=== PATIENT | male | born 1930 | race Caucasian/White ===

== ENCOUNTER 2019-08-11 03:37 | Emergency (ER) | payer MEDICARE, OTHER ==
--- NOTE | 2019-08-11 04:27 | ERPHSYRPT ---
- History of Present Illness Time Seen by Provider: 08/11/19 04:12 Source: patient, family Exam Limitations: clinical condition, physical impairment, other (patient has dementia and diminished hearing, seems to have significant hearing impairment as well) Patient Subjective Stated Complaint: pt states he was short of breath since he woke up about 2 am. 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 pt blood pressure. 180/84, no fever, sats ar 95% room air, 98% on 2l O2. Physician History: 88-year-old male coming in for weakness and shortness of breath, history extremely limited secondary to difficulty hearing or in dementia both any and hearing impairment anyway who offers very little additional assistance. Patient states he has been significantly short of breath for unknown length of time seems to be longer than one week.. seems to agree with this. Patient denies chest pain. Denies nausea vomiting or diarrhea. When asked about PND orthopnea or exertional shortness of breath the patient states he does not know, the does not answer if she has noticed these details of either or whether he appears more edematous than usual. Dairy limited available history. According to the medication list he has been taking a water pill twice daily when asked if he has been taking his medications he states he does not know and she eventually knocked her head yes. No additional history of be obtained PMH: Assuming from his medication list he has dementia and likely congestive heart failure Social: These two live alone, together Timing/Duration: other (unknown) Modifying Factors: Improves With: other (unknown) Allergies/Adverse Reactions: No Known Drug Allergies Allergy (Verified 08/11/19 03:59) Home Medications: Aspirin EC 81 mg [Ecotrin 81 mg] 81 mg PO DAILY 08/11/19 [History] Finasteride 5 mg PO DAILY 08/11/19 [History] Furosemide 40 mg PO BID 08/11/19 [History] Memantine HCl 5 mg [Namenda 5 MG] 5 mg PO DAILY 08/11/19 [History] Potassium Chloride [Klor-Con 8] 8 mg PO DAILY 08/11/19 [History] Tamsulosin HCl 0.4 mg PO HS 08/11/19 [History] Hx Tetanus, Diphtheria Vaccination/Date Given: No Hx Influenza Vaccination/Date Given: No Hx Pneumococcal Vaccination/Date Given: No - Review of Systems Constitutional: No Fever Eyes: No Vision Changes Ears, Nose, & Throat: No Nose Congestion, No Nose Discharge Respiratory: Other (shortness of breath), No Cough Cardiac: Edema (unknown if changed from baseline), No Chest Pain Abdominal/Gastrointestinal: No Abdominal Pain, No Vomiting, No Diarrhea Genitourinary Symptoms: No No Symptoms Musculoskeletal: Other (patient unable to answer) Skin: Other (patient unsure if his legs are more red than usual) Neurological: No Headache Psychological: Other (patient did spontaneously state "I don't drink alcohol") , No Alcohol Abuse Endocrine: Other (patient unable to advised) Hematologic/Lymphatic: No Blood Clots Immunological/Allergic: No No Symptoms All Other Systems: Unable due to dementia - Past Medical History Pertinent Past Medical History: Yes Neurological History: Alzheimer's Disease Cardiac History: Congestive Heart Failure Male Reproductive Disorders: Prostate Problems Other Medical History: 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 - Social History Smoking Status: Never smoker Exposure to second hand smoke: No Drug Use: none Patient Lives Alone: No - Nursing Vital Signs Nursing Vital Signs: Initial Vital Signs Temperature 97.4 F 08/11/19 03:46 Pulse Rate 96 H 08/11/19 03:46 Respiratory Rate 20 08/11/19 03:46 O2 Sat by Pulse Oximetry 96 08/11/19 03:46 Pain Scale Pain Intensity 0 - Physical Exam General Appearance: no apparent distress, alert Eye Exam: PERRL/EOMI, eyes nml inspection Ears, Nose, Throat Exam: normal ENT inspection, TMs normal, pharynx normal, moist mucous membranes Neck Exam: normal inspection, non-tender, supple, full range of motion Respiratory Exam: normal breath sounds, lungs clear, crackles/rales (faint crackles bilateral bases, exam limited by habitus), No respiratory distress Cardiovascular Exam: normal heart sounds, normal peripheral pulses, tachycardia (with regular rhythm), other (2+ pitting edema symmetric, bilateral lower extremities) Gastrointestinal/Abdomen Exam: soft, normal bowel sounds, No tenderness, No mass Back Exam: normal inspection, normal range of motion, No CVA tenderness, No vertebral tenderness Extremity Exam: normal inspection, normal range of motion, pelvis stable Neurologic Exam: alert, oriented x 3, cooperative, normal mood/affect, nml cerebellar function, nml station & gait, sensation nml, No motor deficits Skin Exam: normal color, warm, dry, No rash Lymphatic Exam: No adenopathy SpO2 Interpretation: hypoxic, O2 applied SpO2: 98 O2 Delivery: Nasal Cannula (2 L) - Course EKG Interpreted by Me: RATE ([id number]), Left Odin Deviation, prolonged QT interval, Left Bundle Branch Block, Non-specific ST Changes, Other (does not meet ST segment criteria for acute ischemia with left bundle branch block) Ordered Tests: Active Orders 24 hr Category Date Time Status EKG-ER Only STAT Care 08/11/19 04:17 Active CHEST 1 VIEW (PORTABLE) Stat Exams 08/11/19 04:19 Taken BMP Stat Lab 08/11/19 04:15 Completed BNP [NT PRO BNP] Stat Lab 08/11/19 04:15 Completed CBC W DIFF Stat Lab 08/11/19 04:15 Completed Manual Differential NC Stat Lab 08/11/19 04:15 Completed TROPONIN Q3H Lab 08/11/19 04:15 Received TROPONIN Q3H Lab 08/11/19 07:30 Ordered Lab/Rad Data: Laboratory Result Diagrams 08/11/19 04:15 08/11/19 04:15 Laboratory Results 08/11/19 08/11/19 Range/Units 04:15 04:15 WBC 10.0 (4.0-10.5) K/mm3 RBC 4.75 (4.1-5.6) M/mm3 Hgb 13.9 (12.5-18.0) gm/dl Hct 43.4 (42-50) % MCV 91.4 (78-100) fl MCH 29.3 (26-32) pg MCHC 32.0 (32-36) g/dl RDW 15.7 H (11.5-14.0) % Plt Count 210 (150-450) K/mm3 MPV 11.2 H (6-9.5) fl Sodium 140 (137-145) mmol/L Potassium 4.5 (3.5-5.1) mmol/L Chloride 107 (98-107) mmol/L Carbon Dioxide 25 (22-30) mmol/L Anion Gap 12.1 (5-15) MEQ/L BUN 28 H (9-20) mg/dL Creatinine 1.17 (0.66-1.25) mg/dL Estimated GFR > 60.0 ML/MIN Glucose 103 (74-106) mg/dL Calcium 9.3 (8.4-10.2) mg/dL NT-Pro-B Natriuret Pep 533 (0-1800) pg/mL - Progress Progress Note: Extremely unremarkable workup. The patient is 93-96% on room air. He is slightly tachypneic though afebrile and nontoxic. His EKG is nonischemic. His labs are normal. Her hand and his , though it is difficult to assess a detailed history, he does not seem to be more edematous than usual or more unsteady on his feet or short of breath than usual. His chest x-ray was without evidence of pulmonary edema or focal infiltrate. This does not appear to be acute heart failure exacerbation or pneumonia. Without unilateral leg swelling or history of blood clots this is unlikely to be a pulmonary embolus. He is actually in good condition for discharge with followup with his primary care physician later today or returning here for new or concerning symptoms. His is was understanding of this plan. 08/11/19 05:21 - Departure Departure Disposition: Home Clinical Impression: Shortness of breath Condition: Good Critical Care Time: No Referrals: JANEEN OWENS [Primary Care Provider] - Instructions: Shortness of Breath (Dyspnea) (DC) Additional Instructions: please followup with your primary care provider later today and advised him of your emergency department visit. Please return here for new or concerning symptoms.
[2019-08-11 04:49] LABS: Hematocrit 43.4 % (42-50); Hemoglobin 13.9 gm/dl (12.5-18.0); Mean Cell Volume 91.4 fl (78-100); Mean Corpuscular Hemoglobin 29.3 pg (26-32); Mean Platelet Volume 11.2 fl (6-9.5); Platelet Count 210 K/mm3 (150-450); Red Blood Count 4.75 M/mm3 (4.1-5.6); Red Cell Distribution Width 15.7 % (11.5-14.0)
[2019-08-11 05:09] LABS: ANION GAP 12.1 MEQ/L (5-15); BLOOD UREA NITROGEN 28 mg/dL (9-20); CHLORIDE 107 mmol/L (98-107); Calcium 9.3 mg/dL (8.4-10.2); Carbon Dioxide 25 mmol/L (22-30); Creatinine 1 1.17 mg/dL (0.66-1.25); Glucose 103 mg/dL (74-106); NT PRO BNP 533 pg/mL (0-1800); Potassium 4.5 mmol/L (3.5-5.1); SODIUM 140 mmol/L (137-145)
[2019-08-11 05:34] VITALS: BP 166/87; PULSE 93; O2SAT 94
[2019-08-11 06:21] LABS: ANISOCYTOSIS 1+; Eosinophil 1 % (0.00-3.0); Lymphocytes 21 % (24-44); Monocyte 7 % (0.0-12.0); Neutrophils 71 % (36.-66.); Platelet Estimate NORMAL (NORMAL); Poikilocytosis 1+; Total Cells Counted 100
--- NOTE | 2019-08-11 09:03 | XRAY ---
Indication: Short of breath and weakness. Comparison: November 16, 2014. Portable chest again demonstrates mild right infrahilar infiltrate/atelectasis. Remaining heart and lungs unremarkable. Bony thorax intact again with mild degenerative changes.
== END 2019-08-11 05:34 | disposition home or self-care (01) ==
LOC: ED 03:37
DX: R06.02 Shortness of breath (principal); R53.1 Weakness; Z79.899 Other long term (current) drug therapy; R60.9 Edema, unspecified
CPT/HCPCS: 36000; 36415; 71045; 80048; 83880; 84484; 85025; 93005; 99284